=== PATIENT | female | born 1985 | race Caucasian/White ===

== ENCOUNTER 2017-07-31 21:21 | Emergency (ER) | payer OTHER ==
[2017-07-31] MEDS ORDERED: DIPHENHYDRAMINE 50 MG/ML VIAL ONE (22:33)
[2017-07-31] MEDS ORDERED: METHYLPREDNISOLONE 125 MG INJ ONE (22:33)
--- NOTE | 2017-07-31 23:35 | ER ---
Nurse's Notes [facility] Name: Radha Choi Age: 31 yrs Sex: Female : 1985 Arrival Date: 07/31/2017 Time: 21:23 Bed 28 Private MD: Diagnosis: Facial rash. 2nd Trimester Presentation: 07/31 21:40 Presenting complaint: Patient states: redness, hives, itching to face and neck since ak1 1600 yesterday afternoon. pt last dose Benadryl at 1700 tonight. pt [address] Curran. Transition of care: patient was not received from another setting of care. Onset: The symptoms/episode began/occurred yesterday. Anaphylaxis evaluation, the patient reports or I have noted the following symptoms which indicate a significant risk of anaphylaxis: no signs or symptoms of anaphylaxis were noted. Onset of symptoms was July 30, 2017. Note no resp distress noted. Care prior to arrival: None. 21:40 Acuity: RAYMOND 4 ak1 21:50 Method Of Arrival: Ambulatory cr4 Triage Assessment: 21:41 General: Appears uncomfortable, Behavior is calm, cooperative. Pain: Complains of pain ak1 in face. EENT: No signs and/or symptoms were reported regarding the EENT system. Neuro: No deficits noted. Cardiovascular: No deficits noted. Respiratory: No deficits noted. GI: No signs and/or symptoms were reported involving the gastrointestinal system. : No signs and/or symptoms were reported regarding the genitourinary system. Derm: Skin is red, Skin temperature is warm Rash noted that is red, raised. Musculoskeletal: No signs and/or symptoms reported regarding the musculoskeletal system. 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 - Social history:: Smoking status: Patient/guardian denies using tobacco. Screenin:50 Fall Risk None identified. cr4 08/01 00:00 Abuse screen: Denies threats or abuse. Nutritional screening: No deficits noted. cr4 Tuberculosis screening: No symptoms or risk factors identified. Assessment: 07/31 21:50 General: Appears uncomfortable, well groomed. Neuro: No deficits noted. Denies weakness cr4 blurred vision numbness headache. Cardiovascular: No deficits noted. Denies chest pain, fatigue, lightheadedness, nausea. Respiratory: Airway is patent Respiratory effort is even, unlabored, Respiratory pattern is regular, Breath sounds are clear bilaterally. GI: No deficits noted. : No deficits noted. EENT: Eyes edematous.. Lid(s) swollen. Denies difficulty swallowing. Derm: Skin has lesions on papules and erythema to face down to neck. Skin is dry, Skin is red, Skin temperature is hot Rash noted that is itchy, raised, urticaria. Musculoskeletal: No deficits noted. 22:50 Reassessment: No changes from previously documented assessment. Patient and/or family cr4 updated on plan of care and expected duration. Pain level reassessed. Patient is alert, oriented x 3, equal unlabored respirations, skin warm/dry/pink. Patient states symptoms have not improved. 23:45 Reassessment: No changes from previously documented assessment. Patient and/or family cr4 updated on plan of care and expected duration. Pain level reassessed. Patient is alert, oriented x 3, equal unlabored respirations, skin warm/dry/pink. Vital Signs: 21:41 BP 141 / 92; Pulse 82; Resp 18; Temp 98.7; Pulse Ox 98% on R/A; Weight 121.56 kg (R); ak1 Height 5 ft. 7 in. (170.18 cm) (R); Pain 10/10; 22:30 BP 134 / 85; Pulse 88; Resp 16; Pulse Ox 94% ; Pain 2/10; cr4 23:30 BP 128 / 79; Pulse 85; Resp 18; Temp 98.3; Pulse Ox 100% ; Pain 2/10; cr4 21:41 Body Mass Index 41.97 (121.56 kg, 170.18 cm) ak1 Vitals: 22:50 Heart Tones 149 heart tone. cr4 ED Course: 21:23 Patient arrived in ED. al2 21:41 Triage completed. ak1 21:41 Arm band placed on Patient placed in an exam room, on a stretcher, on pulse oximetry, ak1 Patient notified of wait time. 22:00 Patient has correct armband on for positive identification. Bed in low position. Side cr4 rails up X 1. 22:00 No provider procedures requiring assistance completed. cr4 22:01 Mike Winston MD is Attending Physician. pkl 23:33 Sawyer Gotti MD is Referral Physician. pkl 23:50 Patient did not have IV access during this emergency room visit. cr4 Administered Medications: 22:20 Drug: SOLU-Medrol 125 mg Route: IM; Site: left deltoid; cr4 23:01 Follow up: Response: No adverse reaction cr4 22:20 Drug: Benadryl 25 mg Route: IM; Site: right deltoid; cr4 23:01 Follow up: Response: No adverse reaction cr4 Outcome: 20:50 Discharged to home ambulatory. cr4 20:50 Condition: stable 20:50 Discharge instructions given to patient, Instructed on discharge instructions, follow up and referral plans. medication usage, Demonstrated understanding of instructions, follow-up care, medications, Prescriptions given X 2. 23:34 Discharge ordered by . pkl 03 00:01 Patient left the ED. cr4 Signatures: Mike Winston MD MD pkMarilyn Berrios RN RN cr4 Ana Carballo RN RN ak1 Ping Friedman Corrections: (The following items were deleted from the chart) 07/31 23:58 22:50 Patient did not have IV access during this emergency room visit. cr4 cr4
--- NOTE | 2017-07-31 23:35 | EDPHYS ---
Physician Documentation [facility] Name: Radha Choi Age: 31 yrs Sex: Female : 1985 Arrival Date: 07/31/2017 Time: 21:23 Bed 28 Private MD: ED Physician Mike Winston HPI: 07/31 22:46 This 31 yrs old Female presents to ER via Unassigned with complaints of pkl Allergic Reaction. 22:46 The patient presents with itching, rash, of the face and neck. Onset: The pkl symptoms/episode began/occurred yesterday. Associated signs and symptoms: Pertinent positives: itching. Possible causes: The patient has no known obvious cause for the symptoms. 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 - Social history:: Smoking status: Patient/guardian denies using tobacco. ROS: 22:46 Eyes: Negative for injury, pain, redness, and discharge, ENT: Negative for injury, pkl pain, and discharge, Neck: Negative for injury, pain, and swelling, Cardiovascular: Negative for chest pain, palpitations, and edema, Respiratory: Negative for shortness of breath, cough, wheezing, and pleuritic chest pain, Abdomen/GI: Negative for abdominal pain, nausea, vomiting, diarrhea, and constipation, Back: Negative for injury and pain, : Negative for injury, bleeding, discharge, and swelling, MS/Extremity: Negative for injury and deformity, Neuro: Negative for headache, weakness, numbness, tingling, and seizure. 22:46 Skin: Positive for rash, of the face and neck. Exam: 22:46 Eyes: Pupils equal round and reactive to light, extra-ocular motions intact. Lids and pkl lashes normal. Conjunctiva and sclera are non-icteric and not injected. Cornea within normal limits. Periorbital areas with no swelling, redness, or edema. ENT: Nares patent. No nasal discharge, no septal abnormalities noted. Tympanic membranes are normal and external auditory canals are clear. Oropharynx with no redness, swelling, or masses, exudates, or evidence of obstruction, uvula midline. Mucous membranes moist. Neck: Trachea midline, no thyromegaly or masses palpated, and no cervical lymphadenopathy. Supple, full range of motion without nuchal rigidity, or vertebral point tenderness. No Meningismus. Chest/axilla: Normal chest wall appearance and motion. Nontender with no deformity. No lesions are appreciated. Cardiovascular: Regular rate and rhythm with a normal S1 and S2. No gallops, murmurs, or rubs. Normal PMI, no JVD. No pulse deficits. Respiratory: Lungs have equal breath sounds bilaterally, clear to auscultation and percussion. No rales, rhonchi or wheezes noted. No increased work of breathing, no retractions or nasal flaring. Abdomen/GI: Soft, non-tender, with normal bowel sounds. No distension or tympany. No guarding or rebound. No evidence of tenderness throughout. Back: No spinal tenderness. No costovertebral tenderness. Full range of motion. MS/ Extremity: Pulses equal, no cyanosis. Neurovascular intact. Full, normal range of motion. Neuro: Awake and alert, GCS 15, oriented to person, place, time, and situation. Cranial nerves II-XII grossly intact. Motor strength 5/5 in all extremities. Sensory grossly intact. Cerebellar exam normal. Normal gait. 22:46 Head/face: Noted is rash, eczema. Vital Signs: 21:41 BP 141 / 92; Pulse 82; Resp 18; Temp 98.7; Pulse Ox 98% on R/A; Weight 121.56 kg (R); ak1 Height 5 ft. 7 in. (170.18 cm) (R); Pain 10/10; 22:30 BP 134 / 85; Pulse 88; Resp 16; Pulse Ox 94% ; Pain 2/10; cr4 23:30 BP 128 / 79; Pulse 85; Resp 18; Temp 98.3; Pulse Ox 100% ; Pain 2/10; cr4 21:41 Body Mass Index 41.97 (121.56 kg, 170.18 cm) ak1 MDM: 22:01 Patient medically screened. pk 23:32 Data reviewed: vital signs, nurses notes. pkl 07/31 22:07 Order name: Heart Tones; Complete Time: 22:35 pkl Administered Medications: 22:20 Drug: SOLU-Medrol 125 mg Route: IM; Site: left deltoid; cr4 23:01 Follow up: Response: No adverse reaction cr4 22:20 Drug: Benadryl 25 mg Route: IM; Site: right deltoid; cr4 23:01 Follow up: Response: No adverse reaction cr4 Disposition: 07/31/17 23:34 Discharged to Home. Impression: Facial rash. 2nd Trimester . - Condition is Stable. - Medication Reconciliation Form, Thank You Letter, Antibiotic Education, Prescription Opioid Use form. - Follow up: Sawyer Gotti MD; When: 2 - 3 days; Reason: Re-evaluation by your physician. - Problem is new. - Symptoms are unchanged. Signatures: Mike Winston MD MD pkl Marilyn Sanders, RN RN cr4 Ana Carballo RN RN ak1
== END 2017-08-01 00:01 | disposition home or self-care (01) ==
LOC: ER 21:21
DX: R21 Rash and other nonspecific skin eruption (principal); Z3A.21 21 weeks gestation of pregnancy
CPT/HCPCS: 96372; 99284; J2930

== ENCOUNTER 2017-12-31 13:11 | Emergency (ER) | payer SELFPAY ==
--- NOTE | 2017-12-31 15:07 | ER ---
Nurse's Notes [facility] Name: Rahda Choi Age: 32 yrs Sex: Female : 1985 Arrival Date: 12/31/2017 Time: 13:15 Bed Waiting Private MD: None, None Diagnosis: Presentation: 12/31 13:16 Presenting complaint: Patient states: my back is hurting it started yesterday, low tw2 back. Transition of care: patient was not received from another setting of care. Onset of symptoms was December 31, 2017. Risk Assessment: Do you want to hurt yourself or someone else? Patient reports no desire to harm self or others. Initial Sepsis Screen: Does the patient meet any 2 criteria? No. Patient's initial sepsis screen is negative. Does the patient have a suspected source of infection? No. Patient's initial sepsis screen is negative. Care prior to arrival: None. 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 - Social history:: Smoking status: Patient/guardian denies using tobacco. - Ebola Screening: : Patient denies travel to an Ebola-affected area in the 21 days before illness onset. Vital Signs: 13:17 BP 135 / 53; Pulse 76; Resp 18; Temp 97.3; Pulse Ox 97% on R/A; Weight 113.4 kg (R); tw2 Height 5 ft. 7 in. (170.18 cm) (R); Pain 8/10; 13:17 Body Mass Index 39.16 (113.40 kg, 170.18 cm) tw2 ED Course: 13:15 Patient arrived in ED. sb2 13:15 None, None is Private Physician. sb2 13:17 Triage completed. tw2 13:18 Arm band placed on. tw2 Administered Medications: No medications were administered Outcome: 15:06 Eloped from waiting room, post triage evaluation and consult. pt left at 1420 d/t wait tw2 time 15:06 Patient left the ED. tw2 Signatures: Dahiana Rojas, RN RN tw2 Erica Feltcher sb2
== END 2017-12-31 15:06 | disposition left against medical advice (07) ==
LOC: ER 13:11
DX: Z53.21 Procedure and treatment not carried out due to patient leaving prior to being seen by health care provider (principal)
CPT/HCPCS: 99281